=== PATIENT | female | born 1990 | race African-American/Black ===

== ENCOUNTER 2022-09-23 12:42 | Emergency (ER) | payer MEDICAID, OTHER ==
[~2022-09-23] VITALS: Ht 170.2 cm; Wt 86.0 kg
[2022-09-23] MEDS ORDERED: VISCOUS LIDOCAINE 2% 15 ML UDC PO STA (13:11)
[2022-09-23] MEDS ORDERED: ONDANSETRON HCL 4MG/2ML INJ IV STA (13:11)
[2022-09-23] MEDS ORDERED: MAGNESIUM/ALUMINUM HYDROXIDE/SIMETHICONE 30ML UDC PO STA (13:11)
[2022-09-23] MEDS ORDERED: KETOROLAC 30MG/ML VIAL IV STA (13:11)
[2022-09-23] MEDS ORDERED: MORPHINE SULFATE 4 MG/ML CPJ (NOT FOR IM USE) IV STA (13:11)
[2022-09-23] MEDS ORDERED: SODIUM CHLORIDE 0.9% 1,000 ML IV ONE (13:15)
[2022-09-23 13:51] LABS: BASOPHILS % 1.1 % (0.0-2.0); EOSINOPHILS % 1.9 % (0.0-5.0); HEMATOCRIT. 32.8 % (36.0-48.0); HEMOGLOBIN. 10.4 g/dL (12.0-16.0); LYMPHOCYTES % 27.5 % (20.0-50.0); MEAN CORPUSCULAR HEMOGLOBIN 20.8 pg (28.0-32.0); MEAN CORPUSCULAR VOLUME 65.7 fL (81.0-99.0); MEAN PLATELET VOLUME 7.6 fl (7.4-10.4); MONOCYTES % 6.9 % (2.0-8.0); NEUTROPHILS % 62.6 % (40.0-76.0); PLATELET 461 x1000/uL (130-400); RED CELL DISTRIBUTION WIDTH 19.2 % (11.6-14.6)
[2022-09-23 13:55] LABS: CHLORIDE 106 mEq/L (98-107)
[2022-09-23 14:00] LABS: INR 1.1; PROTHROMBIN TIME 11.3 sec (9.6-11.0)
[2022-09-23 14:04] LABS: ETHANOL BLOOD < 10 mg/dL
[2022-09-23 14:18] LABS: PLATELET ESTIMATE SLIGHTLY INCREASED
[2022-09-23 14:40] LABS: CLARITY URINE CLEAR (CLEAR); COLOR URINE ORANGE (YELLOW); KETONES URINE TRACE (NEGATIVE); LEUKOCYTE ESTERASE URINE TRACE (NEGATIVE); NITRITE URINE NEGATIVE (NEGATIVE); OCCULT BLOOD URINE 3+ (NEGATIVE); PROTEIN URINE 1+ (NEGATIVE); SPECIFIC GRAVITY URINE 1.013 (1.005-1.030); UROBILINOGEN URINE 0.2 E.U./dL (0.2-1.0)
[2022-09-23] MEDS ORDERED: ONDA4TAB50 MT (14:50)
[2022-09-23] MEDS ORDERED: ACET-2708 MT (14:50)
[2022-09-23] MEDS ORDERED: MAG355OR21 MT (14:54)
[2022-09-23] MEDS ORDERED: KETOROLAC 30MG/ML VIAL IV NR (15:30)
[2022-09-23] MEDS ORDERED: ONDANSETRON HCL 4MG/2ML INJ IV NR (15:30)
[2022-09-23] MEDS ORDERED: MAGNESIUM/ALUMINUM HYDROXIDE/SIMETHICONE 30ML UDC PO NR (15:30)
[2022-09-23] MEDS ORDERED: MORPHINE SULFATE 4 MG/ML CPJ (NOT FOR IM USE) IV NR (15:30)
[2022-09-23] MEDS ORDERED: VISCOUS LIDOCAINE 2% 15 ML UDC PO NR (15:30)
[2022-09-23 15:41] LABS: *AMPHETAMINES SCREEN URINE NEGATIVE (NEGATIVE); *BARBITURATES SCREEN URINE NEGATIVE (NEGATIVE); *BENZODIAZEPINES SCREEN URINE NEGATIVE (NEGATIVE); *COCAINE SCREEN URINE NEGATIVE (NEGATIVE); CANNABINOID URINE SCREEN NEGATIVE (NEGATIVE); METHADONE URINE SCREEN NEGATIVE (NEGATIVE); OPIATES URINE SCREEN NEGATIVE (NEGATIVE); PHENCYCLIDINE URINE SCREEN NEGATIVE (NEGATIVE)
[2022-09-23 17:03] VITALS: BP 128/86
== END 2022-09-23 17:05 | disposition home or self-care (01) ==
LOC: ER 12:42
DX: B34.9 Viral infection, unspecified (principal); K92.9 Disease of digestive system, unspecified; Z91.010 Allergy to peanuts; Z00.00 Encounter for general adult medical examination without abnormal findings; R52 Pain, unspecified
CPT/HCPCS: 36415; 71045; 80053; 80305; 80320; 81003; 81025; 83690; 85025; 85610; 96361; 96374; 96375; 99284; J1885; J2405; J7030; Z7610; G0480